=== PATIENT | male | born 1965 | race African-American/Black ===

== ENCOUNTER 2019-11-02 17:52 | Emergency (ER) | payer MEDICAID, OTHER, SELFPAY ==
--- NOTE | 2019-11-02 18:41 | NUR ---
NA X 1 PER [employer]
--- NOTE | 2019-11-02 19:01 | NUR ---
NA X 3 184, 185, 190
== END 2019-11-02 19:03 | disposition left against medical advice (07) ==
LOC: ED 18:57
DX: M25.562 Pain in left knee (principal); R51 Headache; Z53.21 Procedure and treatment not carried out due to patient leaving prior to being seen by health care provider